=== PATIENT | female | born 1965 | race American Indian/Alaskan Native ===

== ENCOUNTER 2025-06-10 11:29 | Outpatient (CLI) | payer OTHER ==
[~2025-06-10 11:29] MED LIST: CALC-995 PO; CELE-193 PO; CYCL-1 PO; MULT-342 PO; OMEG1CAP46 PO; TOPI25TA15 PO; TRAM50TA2 PO
--- NOTE | 2025-06-10 12:52 | RADIOLOGY REPORT ---
PROCEDURE: MR MRI LUMBAR SPINE Indication: SPINAL STENOSIS, LUMBAR REGION WITHOUT NEUROGENIC INES COMPARISON: None TECHNIQUE: Multiplanar multisequence images of the the lumbar spine are obtained. FINDINGS: For the purpose of this examination, there are 5 lumbar vertebral body types counting from the lumbosacral junction. The lumbar vertebral body heights are maintained. There is posterior intrapedicular fixation of the L3 through S1 vertebral bodies. Anterior fusion of the L3 through S1 vertebral bodies with interbody disc spacers. Partial ankylosis of the L3 through S1 vertebral bodies. Moderate multilevel disc space narrowing and desiccation. No abnormal marrow edema. The conus terminates at the L1 level. T12-L1: No spinal canal, neural foraminal stenosis. L1-2: No spinal canal, neural foraminal stenosis. Mild facet and flavum hypertrophy. L2-3: 2 mm disc protrusion. Wknz-oy-iugjcauh facet and flavum hypertrophy. No spinal canal stenosis. Xaoa-pk-mkyqqkbk bilateral neural foraminal stenosis. L3-4: Small disc osteophyte complex. Ubrh-jl-ojddzjdb facet and flavum hypertrophy. No spinal canal stenosis. Htnp-fc-lyqqvbcy bilateral neural foraminal stenosis. L4-5: Small disc osteophyte complex. Gcys-im-nmprzjcq facet and flavum hypertrophy. Moderate bilateral neural foraminal stenosis. L5-S1: Small disc osteophyte complex. No spinal canal stenosis. Moderate to severe bilateral neural foraminal stenosis. IMPRESSION: Moderate lumbar degenerative disc disease. Postsurgical changes at L3 through S1. No high-grade spinal canal stenosis. Moderate to severe neural foraminal stenosis L5 S1. Moderate neural foraminal stenosis L4-5. Zbsg-mv-igamqmfi neural foraminal stenosis L2-3 and L3-4.
== END 2025-06-10 23:59 | disposition home or self-care (01) ==
LOC: MRI02 11:29
PROVIDERS: ATTEND Student in an Organized Health Care Education/Training Program
DX: M51.369 Other intervertebral disc degeneration, lumbar region without mention of lumbar back pain or lower extremity pain (principal); M25.78 Osteophyte, vertebrae; M48.061 Spinal stenosis, lumbar region without neurogenic claudication; M48.07 Spinal stenosis, lumbosacral region; M47.817 Spondylosis without myelopathy or radiculopathy, lumbosacral region
CPT/HCPCS: 72148